=== PATIENT | female | born 1965 | race Caucasian/White ===

== ENCOUNTER 2019-07-11 11:52 | Day surgery (SDC) | payer BC ==
[2019-07-11] MEDS ORDERED: LIDOCAINE 100 MG SYRINGE (14:00)
[2019-07-11] MEDS ORDERED: PROPOFOL 40 ML (14:00)
== END 2019-07-11 18:07 | disposition home or self-care (01) ==
LOC: GIL 11:52
DX: Z12.11 Encounter for screening for malignant neoplasm of colon (principal); D12.2 Benign neoplasm of ascending colon; K57.30 Diverticulosis of large intestine without perforation or abscess without bleeding; K64.8 Other hemorrhoids
CPT/HCPCS: 45380; 88305